=== PATIENT | male | born 1980 | race Two or more races ===

== ENCOUNTER 2021-04-08 14:10 | Emergency (ER) | payer MEDICAID ==
[2021-04-08 15:50] LABS: HEMOGLOBIN 16.9 gm/dl (14.0-17.5); RED BLOOD COUNT 5.55 M/UL (4.20-5.50); WHITE BLOOD COUNT 5.9 K/UL (4.5-11.0)
[2021-04-08 16:13] LABS: BUN/CREATININE RATIO 7 (0-10)
[2021-04-11 06:12] LABS: HBSAG SCREEN Negative (Negative); HEP A AB, IGM Negative (Negative); HEP B CORE AB, IGM Negative (Negative); HEP C VIRUS AB 0.1 (0.0-0.9)
== END 2021-04-08 20:58 | disposition home or self-care (01) ==
LOC: ER1 14:10
PROVIDERS: Emergency Medicine; Physician Assistant Medical
DX: R10.10 Upper abdominal pain, unspecified (principal); R09.3 Abnormal sputum; R11.10 Vomiting, unspecified
CPT/HCPCS: 71045; 80053; 80074; 80307; 81001; 83690; 85025; 85610; 85730; 96374; 99284; J2405; J7030; Q9967

== ENCOUNTER → 2021-05-05 | Outpatient (CLI) | payer OTHER | LOC: EXRD 11:25 | DX: R10.9 Unspecified abdominal pain (principal); K76.0 Fatty (change of) liver, not elsewhere classified | CPT/HCPCS: 76705 ==

== ENCOUNTER 2022-01-13 17:53 | Inpatient (IN) | payer OTHER ==
[~2022-01-13] VITALS: Ht 172.7 cm; Wt 80.0 kg
[2022-01-13 18:46] LABS: HEMOGLOBIN 19.7 gm/dl (14.0-17.5); RED BLOOD COUNT 6.4 M/UL (4.20-5.50); WHITE BLOOD COUNT 18.4 K/UL (4.5-11.0)
[2022-01-13 19:05] LABS: BUN/CREATININE RATIO 6 (0-10)
--- NOTE | 2022-01-13 22:56 | NUR ---
CENSUS TAKER FOR DATABASE 1,2,AND VTE. NAME-CODY #[id number]
[2022-01-14 05:12] LABS: BUN/CREATININE RATIO 8 (0-10); HEMOGLOBIN 17.1 gm/dl (14.0-17.5); RED BLOOD COUNT 5.73 M/UL (4.20-5.50)
--- NOTE | 2022-01-14 12:19 | NUR ---
SPOKE WITH POISON CONTROL SAID COULD LEAVE ICU OKAY TO EAT AND POSSIBLE EKG. STATED 'PATIENT IS OUT OF DANGER ZONE'.
[2022-01-15 02:58] LABS: HEMOGLOBIN 15.8 gm/dl (14.0-17.5); RED BLOOD COUNT 5.31 M/UL (4.20-5.50)
[2022-01-15 03:34] LABS: WHITE BLOOD COUNT 15.2 K/UL (4.5-11.0)
[2022-01-15 03:51] LABS: BUN/CREATININE RATIO 11 (0-10)
--- NOTE | 2022-01-15 09:07 | NUR ---
PT STATES THAT HE DOES NOT FEEL LIKE HURTING HIMSELF ANYMORE AND WANTS TO GO HOME. USED THE TABLET AX SURVEY WORKER TO EXPLAIN THAT WE STILL HAD TO GO THROUGH ALL THE CORRECT GUIDELINES TO MAKE SURE HE STAYS SAFE. HE WAS UNDERSTANDING
[2022-01-16 04:01] LABS: HEMOGLOBIN 16.7 gm/dl (14.0-17.5); RED BLOOD COUNT 5.58 M/UL (4.20-5.50)
[2022-01-16 04:26] LABS: BUN/CREATININE RATIO 10 (0-10)
[2022-01-16 04:33] LABS: WHITE BLOOD COUNT 10.5 K/UL (4.5-11.0)
--- NOTE | 2022-01-16 11:29 | NUR ---
Uses elder counselor to communicate with patient. 1:1 sitter
[2022-01-17 09:45] LABS: HEMOGLOBIN 18.6 gm/dl (14.0-17.5); WHITE BLOOD COUNT 10.2 K/UL (4.5-11.0)
[2022-01-17 09:53] LABS: RED BLOOD COUNT 6.14 M/UL (4.20-5.50)
[2022-01-17 10:16] LABS: BUN/CREATININE RATIO 12 (0-10)
[2022-01-18 03:23] LABS: WHITE BLOOD COUNT 9.6 K/UL (4.5-11.0)
[2022-01-18 03:51] LABS: BUN/CREATININE RATIO 10 (0-10)
[2022-01-18 03:55] LABS: HEMOGLOBIN 16.3 gm/dl (14.0-17.5); RED BLOOD COUNT 5.44 M/UL (4.20-5.50)
[2022-01-19 06:41] LABS: HEMOGLOBIN 16.5 gm/dl (14.0-17.5); RED BLOOD COUNT 5.49 M/UL (4.20-5.50); WHITE BLOOD COUNT 9.2 K/UL (4.5-11.0)
[2022-01-19 07:06] LABS: BUN/CREATININE RATIO 9 (0-10)
[2022-01-19 16:41] LABS: BUN/CREATININE RATIO 9 (0-10)
[2022-01-19] MEDS ORDERED: THERAGRAN M TAB1 EA PO (18:42)
[2022-01-19] MEDS ORDERED: PROTONIX 40 MG40 M1 PO (18:42)
[2022-01-19] MEDS ORDERED: DOCUSATE SODIU250 MG PO (18:42)
[2022-01-20 03:07] LABS: HEMOGLOBIN 16.3 gm/dl (14.0-17.5); RED BLOOD COUNT 5.48 M/UL (4.20-5.50); WHITE BLOOD COUNT 11.2 K/UL (4.5-11.0)
[2022-01-20 03:53] LABS: BUN/CREATININE RATIO 10 (0-10)
== END 2022-01-20 09:10 | DRG 918 ==
LOC: ER1 17:53 → M/S 20:30 → CCU 20:30 → CDU 20:30 → CCU 01-14 06:27 → M/S 01-14 14:58
PROVIDERS: Emergency Medicine; Internal Medicine; Internal Medicine Infectious Disease; ADMIT Internal Medicine
DX: T60.3X2A Toxic effect of herbicides and fungicides, intentional self-harm, initial encounter (principal); E87.2 Acidosis; K92.1 Melena; J98.11 Atelectasis; K29.60 Other gastritis without bleeding; D72.829 Elevated white blood cell count, unspecified; T14.91XA Suicide attempt, initial encounter; Z20.822 Contact with and (suspected) exposure to COVID-19; R74.01 Elevation of levels of liver transaminase levels; T38.0X5A Adverse effect of glucocorticoids and synthetic analogues, initial encounter; Z87.891 Personal history of nicotine dependence; Z79.899 Other long term (current) drug therapy
CPT/HCPCS: 36415; 36600; 71045; 80053; 80307; 81001; 82272; 82550; 82553; 82800; 82803; 83605; 83735; 84100; 84484; 85025; 93005; 94760; 96374; 99285; C9113; G0480; J2405; J7030; U0002